=== PATIENT | male | born 1985 | race American Indian/Alaskan Native ===

== ENCOUNTER 2018-07-22 09:49 | Emergency (ER) | payer BC ==
[2018-07-22 09:57] VITALS: BP 137/97
[2018-07-22] MEDS ORDERED: IBUPROFEN PO ONE (10:01)
--- NOTE | 2018-07-22 10:08 | Emergency Department Report ---
ED Male HPI - General Chief complaint: Urogenital-Male Stated complaint: TESTICULAR TORSION Time Seen by Provider: 07/22/18 10:01 Source: patient Mode of arrival: Ambulatory Limitations: No Limitations - History of Present Illness MD Complaint: testicle pain, testicle swelling, groin pain -: Gradual, days(s) (3) Location: left testicle Radiation: none Severity: moderate Severity scale (0 -10): 6 Quality: aching Consistency: constant Improves with: none Worsens with: none swelling, other (patient feels as though there is less semen being produces well). denies: discharge, rash, urinary retention, blood in urine, fever, nausea/vomiting - Related Data Previous Rx's Medication Instructions Recorded Last Taken Type Ciprofloxacin HCl [Cipro] 500 mg PO BID #14 tablet 07/22/18 Unknown Rx HYDROcodone/APAP 5-325 [Jackson 1 each PO Q6HR PRN #15 tablet 07/22/18 Unknown Rx 5/325] Ibuprofen [Motrin] 600 mg PO Q8H PRN #20 tablet 07/22/18 Unknown Rx Allergies Allergy/AdvReac Type Severity Reaction Status Date / Time No Known Allergies Allergy Verified 07/22/18 09:55 ED Review of Systems ROS: Stated complaint: TESTICULAR TORSION Other details as noted in HPI Comment: All other systems reviewed and negative ED Past Medical Hx - Past Medical History Previous Medical History?: No - Surgical History Past Surgical History?: No - Social History Smoking Status: Never Smoker Substance Use Type: Alcohol - Medications Home Medications: Home Medications Medication Instructions Recorded Confirmed Last Taken Type Ciprofloxacin HCl [Cipro] 500 mg PO BID #14 tablet 07/22/18 Unknown Rx HYDROcodone/APAP 5-325 [Jackson 1 each PO Q6HR PRN #15 tablet 07/22/18 Unknown Rx 5/325] Ibuprofen [Motrin] 600 mg PO Q8H PRN #20 tablet 07/22/18 Unknown Rx ED Physical Exam - General Limitations: No Limitations General appearance: alert, in no apparent distress - Head Head exam: Present: atraumatic, normocephalic - Eye Eye exam: Present: normal appearance - ENT ENT exam: Present: mucous membranes moist - Neck Neck exam: Present: normal inspection - Respiratory Respiratory exam: Present: normal lung sounds bilaterally. Absent: respiratory distress - Cardiovascular Cardiovascular Exam: Present: regular rate, normal rhythm. Absent: systolic murmur, diastolic murmur, rubs, gallop - GI/Abdominal GI/Abdominal exam: Present: soft, normal bowel sounds. Absent: distended, tenderness, guarding, rebound - Rectal Rectal exam: Present: deferred - exam: Present: testicular tenderness, scrotal swelling (left), other (patient with left inguinal lymphadenopathy) External exam: Present: normal external exam - Extremities Exam Extremities exam: Present: normal inspection - Back Exam Back exam: Present: normal inspection - Neurological Exam Neurological exam: Present: alert, oriented X3 - Psychiatric Psychiatric exam: Present: normal affect, normal mood - Skin Skin exam: Present: warm, dry, intact, normal color. Absent: rash ED Course Vital Signs 07/22/18 07/22/18 09:55 10:57 Temperature 99.1 F Pulse Rate 84 Respiratory 16 18 Rate Blood Pressure 137/97 O2 Sat by Pulse 100 99 Oximetry ED Medical Decision Making - Radiology Data [facility] [address] [place] [address] Ultrasound Report Signed Patient: ALEXSANDER CHAVEZ MR#: [id number] : 1985 Acct:[id number] Age/Sex: 33 / M ADM Date: 07/22/18 Loc: ED Attending Dr: Ordering Physician: ROSA GREER MD Date of Service: 07/22/18 Procedure(s): US testicular doppler comp Accession Number(s): [id number] cc: ROSA GREER MD ULTRASOUND TESTICULAR DOPPLER COMPLETE History: Left testicular swelling. Technique: Trans-scrotal ultrasound with spectral doppler interrogation. Findings: Both testicles are normal size, contour and echotexture. No focal lesion or hyperemia. The right epididymis is normal. The left epididymis appears thickened and hypoechoic with hyperemia on color Doppler interrogation. These findings are consistent with left epididymitis. Small right hydrocele and moderate to large left hydrocele are identified. Spectral Doppler waveforms demonstrate arterial flow to both testicles. IMPRESSION: Left epididymitis. Transcribed By: TTR Dictated By: MEENA BEVERLY JR, MD Electronically Authenticated By: MEENA BEVERLY JR, MD Signed Date/Time: 07/22/18 1223 DD/ 1221 TD/TT: 07/22/18 1223 - Medical Decision Making Patient states he is only sexually active with his . Patient still covering for STDs with Rocephin and azithromycin and Flagyl. Patient to be discharged home with a prescription for Cipro as well. Critical care attestation.: If time is entered above; I have spent that time in minutes in the direct care of this critically ill patient, excluding procedure time. ED Disposition Clinical Impression: Epididymitis Disposition: DC-01 TO HOME OR SELFCARE Is pt being admited?: No Does the pt Need Aspirin: No Condition: Stable Instructions: Epididymitis (ED) Forms: STI Treatment and Prevention Time of Disposition: 12:54
[2018-07-22 12:24] LABS: Bilirubin,Urine NEG (Negative); Blood,Urine NEG (Negative); Color,Urine Yellow (Yellow); Mucus,Urine FEW /HPF
--- NOTE | 2018-07-22 12:26 | Ultrasound Report ---
ULTRASOUND TESTICULAR DOPPLER COMPLETE History: Left testicular swelling. Technique: Trans-scrotal ultrasound with spectral doppler interrogation. Findings: Both testicles are normal size, contour and echotexture. No focal lesion or hyperemia. The right epididymis is normal. The left epididymis appears thickened and hypoechoic with hyperemia on color Doppler interrogation. These findings are consistent with left epididymitis. Small right hydrocele and moderate to large left hydrocele are identified. Spectral Doppler waveforms demonstrate arterial flow to both testicles. IMPRESSION: Left epididymitis.
[2018-07-22] MEDS ORDERED: FLAGYL PO ONE (12:31)
[2018-07-22] MEDS ORDERED: ROCEPHIN IM ONE (12:31)
[2018-07-22] MEDS ORDERED: ZITHROMAX PO ONE (12:31)
[2018-07-22] MEDS ORDERED: XYLOCAINE 1% MPF 5 mL INFILTRATI ONE (12:31)
== END 2018-07-22 13:01 | disposition home or self-care (01) ==
LOC: ED 09:49
DX: N45.1 Epididymitis (principal)
CPT/HCPCS: 81001; 93975; 96372; 99284; J0696